=== PATIENT | female | born 1970 | race American Indian/Alaskan Native ===

== ENCOUNTER 2017-04-15 20:46 | Emergency (ER) | payer OTHER ==
[2017-04-15] MEDS ORDERED: TYLENOL PO ONE (23:26)
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
[2017-04-16 03:58] VITALS: BP 103/63
== END 2017-04-16 03:56 | disposition home or self-care (01) ==
LOC: ED 20:46
DX: M79.1 Myalgia (principal); V43.52XA Car driver injured in collision with other type car in traffic accident, initial encounter; W22.10XA Striking against or struck by unspecified automobile airbag, initial encounter; Y93.89 Activity, other specified; Y99.8 Other external cause status; Y92.89 Other specified places as the place of occurrence of the external cause
CPT/HCPCS: 99282